=== PATIENT | female | born 1975 | race Caucasian/White ===

== ENCOUNTER 2018-11-23 03:11 | Observation (INO) | payer BC ==
[2018-11-23 04:46] LABS: PTT 28.8 SEC (22.9-36.1); Prothrombin Time 13.6 SEC (12.0-14.7)
[2018-11-23 04:51] LABS: Hemoglobin 11.7 g/dL (12.0-16.0); Mean Corpuscular HGB CONC 34.2 g/dL (32.0-36.0); Mean Corpuscular Hemoglobin 27.6 pg (27.0-31.0); Mean Corpuscular Volume 80.8 fL (78.0-98.0); Mean Platelet Volume 8.1 fL (7.4-10.4); Platelet Count 200 thou/uL (130-400); RBC Distribution Width 14.3 % (11.5-14.5); Red Blood Cell (RBC) Count 4.22 mill/uL (4.20-5.40); White Blood Cell (WBC) Count 4.5 thou/uL (4.8-10.8)
--- NOTE | 2018-11-23 04:52 | PDOC.EVN ---
Event Note - Event Note Event Note: [id number] HP
[2018-11-23 04:53] LABS: ALT (SGPT) 19 U/L (8-55); AST (SGOT) 16 U/L (5-34); Albumin 4.3 g/dL (3.5-5.0); Alkaline Phosphatase 71 U/L (40-110); Anion Gap 13 mmol/L (10-20); BUN (Urea Nitrogen) 11 mg/dL (7.0-18.7); Bilirubin, Total 0.7 mg/dL (0.2-1.2); CK (CPK) 47 U/L (29-168); Calc. Creatinine Clearance 0 mL/min (70-130); Calcium 9.3 mg/dL (7.8-10.44); Carbon Dioxide 25 mmol/L (22-29); Chloride 105 mmol/L (98-107); Estimated GFR-MDRD Greater than 90; Globulin 3.3 g/dL (2.4-3.5); Glucose 90 mg/dL (70-105); Magnesium 2.1 mg/dL (1.6-2.6); Potassium 3.7 mmol/L (3.5-5.1); Protein, Total 7.6 g/dL (6.0-8.3); Sodium 139 mmol/L (136-145)
[2018-11-23 05:11] LABS: Band 1 % (5-11); Eosinophils 2 % (0-10); Lymphocytes 58 % (21-51); MDiff Complete? YES; Monocytes 4 % (0-10); Neutrophil 31 % (42-75); Reactive Lymphocytes 4 % (0-10)
--- NOTE | 2018-11-23 05:24 | HP ---
CHIEF COMPLAINT: Left arm numbness. HISTORY OF PRESENT ILLNESS: Ms. Vasques is a 43-year-old female who presents as a transfer from [place] [facility] with left arm numbness. The patient reports a history of non ST elevation myocardial infarction one year ago who received a cardiac cath in [place], which showed no coronary artery disease and was diagnosed with Prinzmetal angina. The patient is reporting numbness and tingling in her left arm for the last 2 days. She took two nitros, initially improved. Yesterday, the numbness went down her arm, worsened. She spoke to her enrollment services dean who told her to go to the emergency room. She also reports nausea. She also reports that she has been having weakness in the left arm, but this has been going on for a year. EKG and two troponins in [place] were within normal limits. CT of the head was negative. The patient is being transferred here for further stroke workup. PAST MEDICAL HISTORY: 1. Prinzmetal angina/non STEMI ? Normal heart catheterization. 2. Hypertension. 3. Hyperlipidemia. FAMILY HISTORY: Mother had a heart attack in her 40s. PAST SURGICAL HISTORY: 1. Hysterectomy. 2. Cholecystectomy. 3. Hernia repair. SOCIAL HISTORY: Denies smoking, alcohol drinking, or drug abuse. HOME MEDICATIONS: Please see home medication reconciliation form for updated medications. ALLERGIES: ALLERGIC TO 1. CODEINE. 2. FENTANYL. 3. MORPHINE. REVIEW OF SYSTEMS: Review of 14 systems negative except what is mentioned in the history of present illness. PHYSICAL EXAMINATION: GENERAL: The patient is awake, alert, oriented, does not appear to be in acute distress. VITAL SIGNS: Blood pressure 125/81, pulse is 74, respiratory rate is 16, oxygen saturations 98% on room air. HEAD AND NECK: Normocephalic, atraumatic. Neck is supple. No JVD. CHEST: Fair bilateral air entry. HEART: S1, S2. Regular. ABDOMEN: Soft, nontender. Bowel sounds are present. NEUROLOGIC: Awake, alert, oriented x3, no focal neurological deficits. But the patient is saying that she is feeling weak on the left side and having numbness. LABORATORY DATA: The patient had a CT of the head at [place], which was reported as negative. Also, she had an EKG and two troponins, which were within normal limits. ASSESSMENT: 1. Left arm numbness/? weakness. 2. History of non-ST elevation myocardial infarction ? 3. Hypertension. 4. Hyperlipidemia. 5. Family history of coronary artery disease/myocardial infarction. PLAN: 1. Admit. 2. Aspirin. 3. Frequent neuro checks. 4. MRI of the brain. 5. Reconcile home medications. 6. DVT prophylaxis as appropriate. 7. Expected length of stay is one midnight if the patient is stable and further workup is negative. Job ID: [id number]
[2018-11-23 06:36] VITALS: BMI 34.9
--- NOTE | 2018-11-23 07:41 | RAD ---
EXAM: Single view of the chest HISTORY: Weakness and chest pain COMPARISON: None FINDINGS: Single view of the chest shows a normal sized cardiomediastinal silhouette. There is no saleem dence of consolidation, mass, or pleural effusion. The bones are unremarkable. IMPRESSION: No evidence of acute cardiopulmonary disease
[2018-11-23] MEDS ORDERED: Aspirin 325 mg Enteric Coated Tablet PO SCH (09:00)
--- NOTE | 2018-11-23 10:25 | MRI ---
MRI BRAIN WITHOUT CONTRAST: HISTORY: Stroke, left arm numbness FINDINGS: No restricted diffusion is seen.The ventricular size is appropriate and the basilar cisterns are li nt. No evidence of acute infarct, hemorrhage, midline shift or abnormal extra-axial fluid collections is seen. The visualized paranasal sinuses and mastoid air cells are well-aerated. IMPRESSION: No evidence of acute intracranial process.
[2018-11-23 12:02] VITALS: BP 141/66; TEMP 97.5
--- NOTE | 2018-11-23 19:55 | DIS ---
DATE OF ADMISSION: 11/23/2018 DATE OF DISCHARGE: 11/23/2018 DISCHARGE DIAGNOSES: 1. Left upper extremity paresthesia. 2. Hypertension, stable. 3. Dyslipidemia. CONSULTATIONS: None. PERTINENT LABORATORY AND X-RAY FINDINGS: Complete metabolic profile within normal limits. TSH 8.42. CBC showed a white blood cell count of 4.5, hemoglobin 12, hematocrit 34, and platelet count 200. Portable chest x-ray dated 11/23/2018, showed no acute cardiopulmonary process. MRI of the brain dated 11/23/2018, showed no acute intracranial process. CT of the brain without contrast dated 11/23/2018, showed no acute intracranial process. HOSPITAL COURSE: The patient was observed on the Stroke Unit after initially presenting with left upper extremity paresthesias and numbness, undergoing general stroke protocol. The patient received aspirin 325 mg, undergoing CT and MRI imaging of the brain. No acute process was identified as stated previously. Metabolic workup was essentially unremarkable except for mild elevation of TSH. Current recommendations are to pursue outpatient evaluation of her thyroid function studies with consideration for low-dose thyroid replacement. Telemetry monitoring showed sinus mechanism without evidence of acute arrhythmia or dysrhythmia. The patient's presentation likely consistent with muscle spasm in addition to increased stress reaction. I have examined the patient at the time of discharge and discussed followup instructions. The patient overall clinically stable and ready for discharge on 11/23/2018. DISCHARGE MEDICATIONS: 1. Enteric-coated aspirin 81 mg p.o. daily. 2. Clonidine 0.1 mg p.o. t.i.d. p.r.n. 3. Lisinopril 10 mg p.o. daily. 4. Lopressor 12.5 mg p.o. b.i.d. 5. Nitroglycerin 0.4 mg sublingually q.5 minutes p.r.n. chest pain. 6. Crestor 40 mg p.o. q.a.m. FOLLOWUP: The patient may follow up with her primary care provider, Dr. Paige. CONDITION ON DISCHARGE: Stable. ACTIVITY: Ad-lucrecia. DIET: Heart healthy. CODE STATUS: Full. DISPOSITION: Home on 11/23/2018. Job ID: [id number]
--- NOTE | 2018-11-25 12:46 | EKG ---
Test Reason : LEFT ARM WEAKNESS Blood Pressure : / mmHG Vent. Rate : 064 BPM Atrial Rate : 064 BPM P-R Int : 162 ms QRS Dur : 088 ms QT Int : 418 ms P-R-T Axes : 047 028 023 degrees QTc Int : 431 ms Normal sinus rhythm with sinus arrhythmia Normal ECG Confirmed by JOSE TESFAYE D.O. ([id number]), managing editor SHELIA VASQUEZ ([id number] on 11/25/2018 12:46:21 PM Referred By: Confirmed By:JOSE TESFAYE D.O.
== END 2018-11-23 15:00 | disposition home or self-care (01) ==
LOC: ERS 03:11 → 2SE 06:02
PROVIDERS: ADMIT Internal Medicine; ATTEND Internal Medicine
DX: R20.0 Anesthesia of skin (principal); R20.2 Paresthesia of skin; I25.2 Old myocardial infarction; I10 Essential (primary) hypertension; E78.5 Hyperlipidemia, unspecified; Z79.82 Long term (current) use of aspirin; Z79.899 Other long term (current) drug therapy; Z88.5 Allergy status to narcotic agent
CPT/HCPCS: 70551; 71045; 80053; 82550; 83735; 84443; 84484; 85025; 85610; 85730; 93005; G0378